=== PATIENT | male | born 1990 | race African-American/Black ===

== ENCOUNTER 2019-03-25 20:46 | Emergency (ER) | payer OTHER ==
[2019-03-25 21:10] VITALS: BP 150/91; PULSE 74; BMI 40.7
--- NOTE | 2019-03-26 01:06 | PDOC ---
Documentation entered by Apolonia Benz SCRIBE, acting as scribe for Lilliana Wolfe MD. Lilliana Wolfe MD: This documentation has been prepared by the ronyibeDemar Lincy, SCRIBE, under my direction and personally reviewed by me in its entirety. I confirm that the documentation accurately reflects all work, treatment, procedures, and medical decision making performed by me. History of Present Illness - General Chief Complaint: Pain, Acute Stated Complaint: BACK PAIN SINCE 03/10/2019 Time Seen by Provider: 03/25/19 20:50 History Source: Patient Exam Limitations: No Limitations - History of Present Illness Initial Comments: 03/25/19 22:22 The patient is a 29-year-old male with no reported past medical history who presents to the emergency department with back pain. The patient presents with a gradual onset of intermittent episodes of upper/mid back pain since the middle to late February, which progressed into constant pain in the last few days. 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 The patient reports following up with PCP last week for the symptom, at the same time, the patient was feeling some chest pain. The patient reports she was given Famotidine, with relief. The patient reports he was told by PCP to take Tylenol for the back pain. The patient reports taking Tylenol, with mild relief. Denies chest pain currently. The patient reports sometime last week he followed up at an Urgent Care, where he had an unremarkable CXR. The patient reports he is anxious because he never had similar pain in the past. The patient reports he had an unremarkable routine physical and lab result with PCP last month. Denies chest pain, SOB, lower back pain, urinary symptoms, changes in bowel habits, urinary/bowel incontinence, pain radiating down to the leg, calf pain, or swelling. Allergies: NKA Social history: Social use of alcohol. No reported use of tobacco or recreational drugs. 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 PCP: Dr. Jackson with [facility] Past History - Past Medical History Allergies/Adverse Reactions: Allergies Allergy/AdvReac Type Severity Reaction Status Date / Time No Known Allergies Allergy Verified 03/25/19 20:49 Home Medications: Ambulatory Orders Diclofenac Sodium 75 mg PO BID PRN #20 tablet. 03/25/19 Review of Systems - Review of Systems Able to Perform ROS?: Yes Comments:: 03/25/19 22:24 CONSTITUTIONAL: Pt denies Fever, Chills, weakness. HEENT: denies vision changes, sore throat RESPIRATORY: Denies cough, sob, hemoptysis CARDIAC: denies chest pain, palpitations, lightheadedness, leg swelling ABD/GI: denies abd pain, nausea, vomiting, blood per rectum, melena, diarrhea : denies dysuria, frequency, discharge MSK: +back pain. denies joint swelling SKIN: denies bruising, erythema, rash NEUROLOGICAL: denies headache, numbness, focal weakness, tingling, ataxia, weakness HEMATOLOGICAL: denies anemia, easy bruising, easy bleeding *Physical Exam - Physical Exam 03/25/19 22:25 Constitutional: Awake, alert, oriented. No acute distress. Head: Normocephalic. Atraumatic Eyes: PERRL. EOMI. Conjunctivae are not pale. ENT: Mucous membranes are moist and intact. Posterior pharynx without exudates or erythema. Uvula midline. Neck: Supple. Full ROM. No lymphadenopathy. Cardiovascular: Regular rate. Regular rhythm. S1, S2 regular. Distal pulses are 2+ and symmetric. Pulmonary/Chest: No evidence of respiratory distress. Clear to auscultation bilaterally No wheezing, rales or rhonchi. Abdominal: Soft and non-distended. There is no tenderness. No rebound, guarding or rigidity. No organomegaly. No palpable masses. Good bowel sounds. Back: No CVA tenderness. Musculoskeletal: No edema. No cyanosis. No clubbing. Full range of motion in all extremities. Skin: Skin is warm and dry. No petechiae. No purpura. Neurological: Alert and oriented to person, place, and time. Cranial nerves II -XII are grossly intact. Normal speech. Strength is grossly symmetric. No sensory deficits. Psychiatric: Good eye contact. Normal interaction, affect and behavior. Medical Decision Making - Medical Decision Making As noted above, this 29-year-old man presents with persistent posterior mid back pain for the last 2 weeks. 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 He cannot remember doing this recently. Patient has been seen both by urgent care and his PMD for this pain. At urgent care, where his primary complaint was related to chest pain and epigastric discomfort, famotidine was prescribed for GERD. The patient reports resolution of his anterior chest pain. At urgent care, chest x-ray was performed interpreted as normal: Image that patient had on his phone appeared to have normal major vessel contour, cardiac profile and lung mcmillan. Patient is especially concerned that he may have bony lesions and his PMD had suggested that he ultimately may need an MRI of his thoracic spine. It was explained to the patient that he can certainly have a plain film of his thoracic spine tonight but that MRI would be needed to be done as an outpatient. Thoracic spine x-ray performed and interpreted by Dr. He of the radiology staff: Limited study but no evidence of fracture or other acute abnormality. Results discussed with the patient. This patient has not taken any analgesics/anti-inflammatory medications for his pain, prescription for diclofenac 75 mg twice a day to be used as needed for back pain was sent to his pharmacy. Since he apparently has GERD, he should be very careful to take this medication only with a full meal and stop if he has any increase in his epigastric discomfort or chest pain. He should follow-up with his PMD within the next 3 days, especially if he has persistent discomfort and return to the ER if he develops severe pain, shortness of breath, fever Discharge - Discharge Information Problems reviewed: Yes Clinical Impression/Diagnosis: Thoracic back pain Qualifiers: Chronicity: acute Back pain laterality: midline Qualified Code(s): M54.6 - Pain in thoracic spine Condition: Stable Disposition: HOME - Additional Discharge Information Prescriptions: Diclofenac Sodium 75 mg PO BID PRN #20 tablet.dr HACKETT Reason: Back Pain - Follow up/Referral Referrals: Manuel Morataya [Primary Care Provider] - Call tomorrow - Patient Discharge Instructions Patient Printed Discharge Instructions: Thoracic Back Pain Additional Instructions: Avoid strenuous activities such as lifting, pushing or pulling heavy objects Diclofenac 75 mg twice a day as needed for pain; take with a meal Call your doctor's office in AM and arrange follow-up within the next 3 days Return to ER if you have severe pain, shortness of breath, fever - Post Discharge Activity
== END 2019-03-25 23:31 | disposition home or self-care (01) ==
LOC: FER 20:46
DX: M54.9 Dorsalgia, unspecified (principal)
CPT/HCPCS: 72070-TC-FY; 99281-25